=== PATIENT | female | born 1960 | race Two or more races ===

== ENCOUNTER 2020-12-06 06:08 | Day surgery (SDC) | payer OTHER ==
[~2020-12-06 06:08] MED LIST: ACID REDUCER20 M1 PO; DILTIAZEM ER240 M3 PO; ELIQUIS2.5 MG PO; FLECAINIDE ACE100 MG PO
[2020-12-06] MEDS ORDERED: SURFAK240 MG PO (12:36)
[2020-12-06] MEDS ORDERED: PERCOCET 5-3251 EACH PO (12:36)
[2020-12-06] MEDS ORDERED: POLY119PG PO (12:36)
[2020-12-06] MEDS ORDERED: CIPRO500 MG PO (12:36)
== END 2020-12-06 16:01 | disposition home or self-care (01) ==
LOC: CIR.AMB 06:08
PROVIDERS: ATTEND Surgery
DX: K42.9 Umbilical hernia without obstruction or gangrene (principal); K43.9 Ventral hernia without obstruction or gangrene; K80.10 Calculus of gallbladder with chronic cholecystitis without obstruction; Z20.822 Contact with and (suspected) exposure to COVID-19